=== PATIENT | male | born 1970 | race Hispanic/Latino ===

== ENCOUNTER 2016-12-05 14:57 | Inpatient (IN) | payer MEDICAID ==
[2016-12-05 14:58] VITALS: BMI 24.5
[2016-12-05 16:05] LABS: BASO % 0.6 % (0.0-2.0); EOS # 0.1 K/uL (0.0-0.7); EOS % 0.9 % (0.0-4.0); HEMOGLOBIN 14.4 g/dL (12.0-18.0); LYMPH # 1.4 K/uL (1.0-4.3); LYMPH % 23.2 % (20.0-40.0); MEAN CELL VOLUME 101.9 fL (80.0-94.0); MEAN CORPUSCULAR HEMOGLOBIN 34.2 pg (27.0-31.0); MEAN CORPUSCULAR HGB CONC 33.6 g/dL (33.0-37.0); MEAN PLATELET VOLUME 7.6 fL (7.2-11.7); MONO # 0.2 K/uL (0.0-0.8); NEUT # 4.2 K/uL (1.8-7.0); NEUT % 71.3 % (50.0-75.0); RBC 4.2 Mil/uL (4.40-5.90); RED CELL DISTRIBUTION WIDTH 12.7 % (11.5-14.5); WHITE BLOOD COUNT 5.8 K/uL (4.8-10.8)
[2016-12-05 16:09] LABS: BARBITURATES, UR NEGATIVE (NEGATIVE); BENZODIAZEPINES, UR NEGATIVE (NEGATIVE)
[2016-12-05 16:11] LABS: URINE BILIRUBIN NEGATIVE (NEGATIVE); URINE BLOOD NEGATIVE (NEGATIVE); URINE CLARITY Clear (Clear); URINE COLOR Straw (YELLOW); URINE GLUCOSE (UA) NORMAL (Normal); URINE LEUKOCYTE ESTERASE NEG Leu/uL (Negative); URINE NITRATE NEGATIVE (NEGATIVE); URINE PROTEIN NEGATIVE (NEGATIVE); URINE UROBILINOGEN NORMAL mg/dL (0.2-1.0)
[2016-12-05 16:11] LABS: ALBUMIN 3.8 g/dL (3.5-5.0)
[2016-12-05 16:12] LABS: OPIATES, UR POSITIVE (NEGATIVE)
[2016-12-05 16:13] LABS: PHENCYCLIDINE, UR NEGATIVE (NEGATIVE)
[2016-12-05 16:14] LABS: ALB/GLOB RATIO 1.3 (1.0-2.1); ALT/SGPT 42 U/L (21-72); AST/SGOT 42 U/L (17-59); BLOOD UREA NITROGEN 9 mg/dL (9-20); GFR AFRICAN-AMERICAN > 60; GFR NON-AFRICAN AMERICAN > 60
[2016-12-05] MEDS ORDERED: DiphenhydrAMINE 50 mg/ml Inj IM STA (16:21)
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
[2016-12-05] MEDS ORDERED: DiphenhydrAMINE 50 mg/ml Inj ONE (16:26)
--- NOTE | 2016-12-05 17:06 | RAD ---
PROCEDURE: CHEST RADIOGRAPH, 1 VIEW HISTORY: Detox/Psy COMPARISON: Comparison is made to 09/03/2015 FINDINGS: LUNGS: Clear. PLEURA: No pneumothorax or pleural fluid seen. CARDIOVASCULAR: Normal. OSSEOUS STRUCTURES: No significant abnormalities. VISUALIZED UPPER ABDOMEN: Normal. OTHER FINDINGS: None. IMPRESSION: No active disease.
--- NOTE | 2016-12-06 01:16 | PCM.BM ---
Treatment Plan Problems - Problems identified on initial assessmt Problem 1 Date Initiated: 12/06/16 Time Initiated: 01:15 Assessment reference: NA Status: Active
[2016-12-06] MEDS ORDERED: Potassium Chloride 20 mEq ER Tab PO STA (01:25)
[2016-12-06 01:32] VITALS: O2SAT 97
--- NOTE | 2016-12-06 02:10 | PCM.BM ---
Treatment Plan Problems - Problems identified on initial assessmt Problem 1 Date Initiated: 12/06/16 (Depression) Time Initiated: 01:15 Assessment reference: NA Status: Active Comment: Depression Problem 2 Date Initiated: 12/06/16 (Suicidal Ideation) Time Initiated: 02:08 Assessment reference: NA Status: Active Comment: Suicidal Ideation Problem 3 Date Initiated: 12/06/16 (Substance Abuse) Time Initiated: 02:10 Assessment reference: NA Status: Active Comment: Substance Abuse
--- NOTE | 2016-12-06 02:20 | PCM.BM ---
<Darinel York - Last Filed: 12/06/16 02:17> Treatment Plan Problems - Problems identified on initial assessmt Problem 1 Date Initiated: 12/06/16 (Depression) Time Initiated: 01:15 Assessment reference: NA Status: Active Comment: Depression Problem 2 Date Initiated: 12/06/16 (Suicidal Ideation) Time Initiated: 02:08 Assessment reference: NA Status: Active Comment: Suicidal Ideation Problem 3 Date Initiated: 12/06/16 (Substance Abuse) Time Initiated: 02:10 Assessment reference: NA Status: Active Comment: Substance Abuse Treatment assets and liabiliti Patient Assests: self-reliant, ADL independent, negotiates basic needs Patient Liabilities: live alone, physical pain, financial problems, poor support system, substance abuse, medical problems - Milieu Protocol Maintain good personal hygiene: daily Encourage regular showers, daily Remind patient to perform daily oral care, other Assist patient to perform ADL's ( Independent) Maintain personal safety: every shift Educate patient to report safety concerns to staff, every shift Monitor environment for contraband/sharps Medication safety: Monitor for expected outcome, potential side effects: every shift, Assess barriers to learning: every shift, Assess readiness for medication education: every shift <Stuart Nguyen - Last Filed: 12/06/16 11:07> - Diagnosis (1) Depression Status: Acute Interventions: 12/06/16 11:06 Attend groups, take meds (2) Alcohol abuse Status: Acute Interventions: 12/06/16 11:07 Attend groups, take meds (3) Opioid abuse Status: Acute Interventions: 12/06/16 11:07 Attend groups, take meds
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
[2016-12-06] MEDS: Multiple Vitamins Tab PO SCH (12:25)
--- NOTE | 2016-12-06 12:55 | CARD ---
APPROVED REPORT EKG Measurement Heart [id number] <Conclusion> Normal sinus rhythm Nonspecific T wave abnormality Abnormal ECG
[2016-12-07] MEDS ORDERED: Propofol 10 mg/ml Inj (20 ML) ONE (07:53)
[2016-12-07] MEDS: Multiple Vitamins Tab PO SCH (09:49)
--- NOTE | 2016-12-07 15:27 | PCM.PYCHPN ---
Psychiatric Progress Note - Psychiatric Progress Note Patient seen today, length of contact: 16 min Patient Chief Complaint: "I am not feeling well. My back hurts a lot and I need medication" Problems Identified/Issues Discussed: The pt is seen, chart reviewed, case discussed with staff. Patient reports depressed mood and at times feelings of hopelessness and helplessness. As per the staff patient remained isolated and withdrawn. Patient also reports withdrawal symptoms including cramps, nausea, anxiety, and headaches. He is tolerating the withdrawal medications and denies any side effects. Patient requests more medication for his back pain and states that he doesn't feel well. Physical therapy consult requested. Patient needs more time to stabilize. After care discussed, support and psychoeducation given. Medication Change: Yes (methadone taper) Medical Record Reviewed: Yes Mental Status Examination - Cognitive Function Orientation: Person, Place, Situation, Time Memory: Intact Attention: Poor Concentration: Poor Association: WNL Fund of Knowledge: WNL - Mood Mood: Depressed, Anxious - Affect Affect: Constricted, Depressed - Speech Speech: Soft - Formal Thought Process Formal Thought Process: No Impairment - Suicidal Ideation Suicidal Ideation: No - Homicidal Ideation Homicidal Ideation: No Goal/Treatment Plan - Goal/Treatment Plan Need for Continued Stay: Severe depression anxiety, Discharge may exacerbated symptoms, Severe functional impairment Progress Toward Problem(s) and Goals/Treatment Plan: Bipolar disorder mixed severe with psychotic features CBT Psychoeducation Supportive therapy, group therapy, individual therapy Zoloft 50 mg daily Neurontin 300 mg by mouth 3 times a day Trazodone 50 mg by mouth daily at bedtime Opiod use disorder severe clonidine when necessary Attend groups and activities [place] for abstinence and CBT for relapse prevention Support and psychoeducation Consider and encourage MAT Refer to after care Alcohol use disorder and withdrawal: Librium Taper Clonidine As needed meds and vitamins [place] for abstinence and CBT for relapse prevention Support and psychoeducation Refer to aftercare Back pain: Acetominophen Estimated Date of D/C: 12/10/16 - Smoking Cessation Smoking Cessation Initiated: No
[2016-12-08] MEDS: Multiple Vitamins Tab PO SCH (09:42)
--- NOTE | 2016-12-08 15:16 | PCM.PYCHPN ---
Psychiatric Progress Note - Psychiatric Progress Note Patient seen today, length of contact: 16 min Patient Chief Complaint: "I am not feeling well. My back hurts a lot and I need medication" Problems Identified/Issues Discussed: The pt is seen, chart reviewed, case discussed with staff. Patient remained isolated and withdrawn. As per the staff he is med seeing and asking for oxycodone fo his back pain. He still reports reports depressed mood, feelings of hopelessness and helplessness and suicidal ideation. Patient also reports withdrawal symptoms including cramps, nausea, anxiety, and headaches. He is tolerating the withdrawal medications and denies any side effects. Patient requests more medication for his back pain and states that he doesn't feel well. . Patient needs more time to stabilize. After care discussed, support and psychoeducation given. Medication Change: Yes (librium taper, increase zoloft, increase neurontin) Medical Record Reviewed: Yes Mental Status Examination - Cognitive Function Orientation: Person, Place, Situation, Time Memory: Intact Attention: Poor Concentration: Poor Association: WNL Fund of Knowledge: WNL - Mood Mood: Depressed, Anxious - Affect Affect: Constricted, Depressed - Speech Speech: Soft - Formal Thought Process Formal Thought Process: No Impairment - Suicidal Ideation Suicidal Ideation: No - Homicidal Ideation Homicidal Ideation: No Goal/Treatment Plan - Goal/Treatment Plan Need for Continued Stay: Severe depression anxiety, Discharge may exacerbated symptoms, Severe functional impairment Progress Toward Problem(s) and Goals/Treatment Plan: Bipolar disorder mixed severe with psychotic features CBT Psychoeducation Supportive therapy, group therapy, individual therapy Zoloft 100 mg daily Neurontin 400 mg by mouth 3 times a day Trazodone 50 mg by mouth daily at bedtime Opiod use disorder severe clonidine when necessary Attend groups and activities [place] for abstinence and CBT for relapse prevention Support and psychoeducation Consider and encourage MAT Refer to after care Alcohol use disorder and withdrawal: Librium Taper Clonidine As needed meds and vitamins [place] for abstinence and CBT for relapse prevention Support and psychoeducation Refer to aftercare Back pain: Acetominophen Estimated Date of D/C: 12/10/16 - Smoking Cessation Smoking Cessation Initiated: No
[2016-12-09 07:55] VITALS: BP 106/75; PULSE 71; RESP 19; TEMP 98.3
[2016-12-09] MEDS: Multiple Vitamins Tab PO SCH (09:41)
--- NOTE | 2016-12-09 10:30 | PCM.PYCHPN ---
Psychiatric Progress Note - Psychiatric Progress Note Patient seen today, length of contact: 17 min Patient Chief Complaint: "I am not good. I am in excruciating pain." Problems Identified/Issues Discussed: The pt is seen, chart reviewed, case discussed with staff. Patient remained isolated and withdrawn. As per the staff he is med seeking and asking for oxycodone for his back pain. He still reports reports depressed mood , but denies any feelings of hopelessness and helplessness. he reports at times suicidal ideation because of his back pain. Patient also reports withdrawal symptoms including cramps, nausea, anxiety, and headaches. He is tolerating the withdrawal medications and denies any side effects. Patient requests more medication for his back pain and states that he doesn't feel well. Patient needs more time to stabilize. After care discussed, support and psychoeducation given. Medication Change: Yes (librium taper, increase zoloft, increase neurontin) Medical Record Reviewed: Yes Mental Status Examination - Cognitive Function Orientation: Person, Place, Situation, Time Memory: Intact Attention: WNL Concentration: Poor Association: WNL Fund of Knowledge: Poor - Mood Mood: Depressed, Anxious - Affect Affect: Constricted, Depressed - Speech Speech: Soft Additional comments: Mumbling short responses - Formal Thought Process Formal Thought Process: No Impairment - Suicidal Ideation Suicidal Ideation: No - Homicidal Ideation Homicidal Ideation: No Goal/Treatment Plan - Goal/Treatment Plan Need for Continued Stay: Severe depression anxiety, Discharge may exacerbated symptoms, Severe functional impairment Progress Toward Problem(s) and Goals/Treatment Plan: Bipolar disorder mixed severe with psychotic features CBT Psychoeducation Supportive therapy, group therapy, individual therapy Zoloft 100 mg daily Neurontin 600 mg by mouth 3 times a day Trazodone 50 mg by mouth daily at bedtime Opiod use disorder severe clonidine when necessary Attend groups and activities [place] for abstinence and CBT for relapse prevention Support and psychoeducation Consider and encourage MAT Refer to after care Alcohol use disorder and withdrawal: Librium Taper Clonidine As needed meds and vitamins [place] for abstinence and CBT for relapse prevention Support and psychoeducation Refer to aftercare Back pain: Acetominophen Estimated Date of D/C: 12/10/16
--- NOTE | 2016-12-11 01:51 | PCM.PYCHDC ---
Mental Status Examination - Mental Status Examination Orientation: Person, Place, Situation, Time Memory: Intact Mood: Neutral Affect: Broad Speech: Pressured Attention: WNL Concentration: WNL Association: WNL Fund of Knowledge: WNL Formal Thought Process: No Impairment Description of patient's judgement and insight: partially impaired Psychotic Thoughts and Behaviors: denies any AVH Suicidal Ideation: No Current Homicidal Ideation?: No Discharge Summary - Discharge Note Reason for Hospitalization: Patient is a 46 year old, single, homeless, unemployed, male with history of depression, alcohol, opiate, and tobacco use was admitted for the treatment of his depression, substance use and back pain. Patient is very agitated and requests that he needs pain medication for his back. He reports feeling hopeless. Patient has attended a rehab in [place] many years ago. Pt denies seizures, voices, and paranoia. Pt reports seeing shadows/demons. Pt has attempted suicide once 10 years ago, by slitting his wrist. He states that his mood varies often and reports no specific factors that cause his mood to change. Patient was hospitalized 10 years ago for bipolar , acute anxiety and acute depression. Patient requests pain medication for his back and states that he has been using heroin and alcohol to help relieve the pain. Alcohol: started drinking at the age of 11 years, gradually increasing amount to 4 pints of beer per day. Pt reports that his last drink was yesterday. Patient reports that he is withdrawing and having symptoms of tremors, restless legs and that his body aches all over. Opiates: Started using at the age of 38 years, 5 bags of heroin daily, sniff. Tobacco: Smokes 1 PPD of cigarettes. Consultations:: List each consultation separately and include: 1. Reason for request. 2. Findings. 3. Follow-up Summary of Hospital Course include:: 1. Description of specific treatment plan utilized for patients during their course of treatmen. 2. Summarize the time- course for resolution of acute symptoms and/or regressed behaviors. 3. Describe issues identified and worked on during hospitalization. 4. Describe medication utilized. 5. Describe medical problems identified and treated. 6. Reassessment of suicide risk Summary of Hospital Course: Pt started doing better. but he signed AMA. He started yelling and cursing at the nurses and peers. However denied an AVH and denied any SI and HI. - Diagnosis (1) Depression Status: Acute (2) Alcohol abuse Status: Acute (3) Opioid abuse Status: Acute - Final Diagnosis (DSM 5) Condition upon Discharge: STABLE DSM 5: Bipolar disorder mixed severe with psychotic features Opiod use disorder severe Alcohol use disorder and withdrawal: Disposition: AGAINST MEDICAL ADVICE Follow-up Treatment Plan: Pt was educated and counseled about the risks and benefits of taking and not taking medications. Pt was educated and counseled about the risks of drinking and abusing drugs. Pt was educated and counseled to go to the ER or call 911 if pt develop suicidal ideation or homicidal ideation, worsening of symptoms or severe side effects of the meds. - Smoking Cessation Smoking Cessation Medication prescribed: No - Antipsychotic Medications Pt discharged on 2 or more routine antipsychotic medications: No
== END 2016-12-09 14:10 | disposition left against medical advice (07) | DRG 743 ==
LOC: C.ER 14:57 → C.5E 12-06 00:32
PROVIDERS: ADMIT Psychiatry & Neurology Psychiatry; ATTEND Psychiatry & Neurology Psychiatry
PROC: HZ2ZZZZ Detoxification Services for Substance Abuse Treatment (ICD-10-PCS; principal; 2016-12-06)
PROC: HZ52ZZZ Individual Psychotherapy for Substance Abuse Treatment, Cognitive-Behavioral (ICD-10-PCS; 2016-12-06)
PROC: HZ59ZZZ Individual Psychotherapy for Substance Abuse Treatment, Supportive (ICD-10-PCS; 2016-12-06)
PROC: HZ56ZZZ Individual Psychotherapy for Substance Abuse Treatment, Psychoeducation (ICD-10-PCS; 2016-12-06)
PROC: HZ42ZZZ Group Counseling for Substance Abuse Treatment, Cognitive-Behavioral (ICD-10-PCS; 2016-12-06)
PROC: HZ46ZZZ Group Counseling for Substance Abuse Treatment, Psychoeducation (ICD-10-PCS; 2016-12-06)
DX: F11.23 Opioid dependence with withdrawal (principal); R45.851 Suicidal ideations; F31.64 Bipolar disorder, current episode mixed, severe, with psychotic features; B19.20 Unspecified viral hepatitis C without hepatic coma; F10.230 Alcohol dependence with withdrawal, uncomplicated; Y90.8 Blood alcohol level of 240 mg/100 ml or more; Z59.0 Homelessness; F17.210 Nicotine dependence, cigarettes, uncomplicated; E03.9 Hypothyroidism, unspecified; M54.9 Dorsalgia, unspecified; F41.8 Other specified anxiety disorders

== ENCOUNTER 2016-12-25 19:40 | Emergency (ER) | payer MEDICAID ==
[2016-12-25 19:40] VITALS: BMI 24.5
[2016-12-25 19:51] VITALS: BP 123/74; PULSE 74; RESP 16; TEMP 98.6; O2SAT 95
--- NOTE | 2016-12-26 00:15 | C.PDOC ---
History Of Present Illness 46 year old male was brought to the ED by EMS after being found publicly intoxicated and malingering @ [place], BIBA, no injuries. Patient states he drinks five pints of vodka a day and snorts a bundle of heroin a day. He denies suicidal or homicidal ideations, or any physical complaints at this time. Time Seen by Provider: 12/25/16 19:51 Chief Complaint (Nursing): Substance Abuse History Per: Patient, EMS History/Exam Limitations: no limitations Suicide/Self Injury Attempted (Context): None Associated Symptoms: denies: Suicidal Thoughts, Suicidal Plan Involuntary Hold By: None Recent travel outside of the [place]: No Past Medical History Reviewed: Historical Data, Nursing Documentation, Vital Signs Vital Signs: Last Vital Signs Temp 98.6 F 12/25/16 19:49 Pulse 74 12/25/16 19:49 Resp 16 12/25/16 19:49 BP 123/74 12/25/16 19:49 Pulse Ox 95 12/26/16 00:18 - Medical History PMH: Anxiety, Back Problems, Depression, Fractures (vertebrae), Hepatitis (Hep C ), Hypothyroidism, Chronic Pain (Back Pain) Surgical History: Back Surgery - [facility] APPLICATION OF SPLINT (08/08/14) DETOXIFICATION SERVICES FOR SUBSTANCE ABUSE TREATMENT (12/06/16) GROUP VECTOR CONTROL SPECIALIST FOR SUBSTANCE ABUSE TREATMENT, PSYCHOEDUCATION (12/06/16) GROUP VECTOR CONTROL SPECIALIST FOR SUBSTANCE ABUSE, COGNITIVE BEHAVIORAL (12/06/16) INDIV PSYCHOTHERAPY FOR SUBSTANCE ABUSE TREATMENT, SUPPORT (12/06/16) INDIV PSYCHOTHERAPY FOR SUBSTANCE ABUSE, COGNITIV BEHAVIORAL (12/06/16) INDIV PSYCHOTHERAPY FOR SUBSTANCE ABUSE, PSYCHOEDUCATION (12/06/16) PHYSICAL THERAPY NEC (11/01/14) Family History: States: Unknown Family Hx - Social History Hx Tobacco Use: Yes Hx Alcohol Use: Yes Hx Substance Use: Yes - Immunization History Hx Tetanus Toxoid Vaccination: Yes Hx Influenza Vaccination: Yes Hx Pneumococcal Vaccination: Yes Review Of Systems Constitutional: Negative for: Fever, Chills Cardiovascular: Negative for: Chest Pain, Palpitations Respiratory: Negative for: Shortness of Breath Gastrointestinal: Negative for: Nausea, Vomiting, Abdominal Pain Psych: Negative for: Suicidal ideation Physical Exam - Physical Exam Appears: Non-toxic, No Acute Distress, Other (Patient is intoxicated or argumentative. ) Skin: Warm, Dry Head: Atraumatic Eye(s): bilateral: Normal Inspection, PERRL, EOMI Oral Mucosa: Moist Neck: Supple Chest: Symmetrical, No Deformity Cardiovascular: Rhythm Regular Respiratory: Normal Breath Sounds, No Rhonchi, No Wheezing Gastrointestinal/Abdominal: Soft, No Tenderness, No Distention, No Guarding, No Rebound Extremity: Normal ROM, No Tenderness Neurological/Psych: Oriented x3 ED Course And Treatment O2 Sat by Pulse Oximetry: 95 (room air ) Reevaluation Time: 01:00 Reassessment Condition: Improved (comfortable, sleeping) Medical Decision Making Medical Decision Making: detox not offered as no detox beds available for this pt tonight. ED OBSERVATION Date of observation admission: 12/25/16 Time of observation admission: 20:05 - Observation admission statement Patient is being placed in observation because:: patient is intoxicated. - Goals of Observation Goals of observation are:: sobriety. Disposition - Disposition Disposition Time: 01:00 Condition: GOOD Forms: [facility] (Latvian) - Clinical Impression Clinical Impression: Alcohol abuse, Opioid abuse - Scribe Statement The provider has reviewed the documentation as recorded by the Scribe Rosalina Peck All medical record entries made by the Scribe were at my direction and personally dictated by me. I have reviewed the chart and agree that the record accurately reflects my personal performance of the history, physical exam, medical decision making, and the department course for this patient. I have also personally directed, reviewed, and agree with the discharge instructions and disposition. Physician Patient Turnover Patient Signed Over To: Obey Wells Handoff Comments: pending sobriety in AM, discharge when sober.
== END 2016-12-26 06:06 | disposition home or self-care (01) ==
LOC: C.ER 19:40
DX: F11.10 Opioid abuse, uncomplicated (principal); F10.10 Alcohol abuse, uncomplicated